=== PATIENT | male | born 1975 | race Caucasian/White ===

== ENCOUNTER 2024-10-24 14:32 | Outpatient (CLI) | payer BC, SELFPAY ==
--- NOTE | ~2024-10-24 | XR_ITS ---
XR cervical spine min 6V Ordering provider: Jose Luis Díaz, [place] History: . R neck pain with radiculopathy . Comparison: None. FINDINGS: VERTEBRAL BODIES: Normal height and alignment. No visible fracture or subluxation. The dens is intact . DISK SPACES: Well maintained. PARASPINOUS SOFT TISSUES: No prevertebral soft tissue swelling. IMPRESSION: No acute osseous abnormality cervical spine. Reviewed, dictated and finalized at location [facility].
== END 2024-10-24 14:33 | disposition home or self-care (01) ==
LOC: MICIMG 14:37
PROVIDERS: PCP Chiropractor; Visit Provider Chiropractor
DX: M54.2 Cervicalgia (principal); M54.12 Radiculopathy, cervical region
CPT/HCPCS: 72052

== ENCOUNTER 2024-10-25 12:46 | Outpatient (CLI) | payer BC, SELFPAY ==
--- NOTE | ~2024-10-25 | MR_ITS ---
MRI of the cervical spine Clinical History: Neck pain Technique: Axial T2-weighted and gradient images, and sagittal T1-weighted, T2-weighted, and STIR alf ges were acquired. Findings: There is straightening of the normal cervical lordosis. No fracture or subluxation seen. No bone marrow signal abnormality seen. At C2-C3, there is no significant disc bulge or herniation. No spinal canal stenosis, cord compressio n, or neural foraminal narrowing evident. C3-C4, there is mild disc osteophyte complex. No spinal canal stenosis or cord compression. Probable minimal bilateral neural foraminal narrowing. At C4-C5, there is disc osteophyte complex and mild facet arthropathy bilaterally. There is left neur al foraminal narrowing. Right neural foramen preserved. No canal stenosis or cord compression. At C5-C6, there is mild disc osteophyte complex and mild facet hypertrophy. There is mild bilateral n eural foraminal narrowing, left worse than right. No canal stenosis or cord compression. At C6-C7, there is disc osteophyte complex with bilateral neural foraminal narrowing. No canal stenos is or cord compression evident. No abnormal signal seen in the spinal cord. Paravertebral soft tissues are unremarkable. Impression: [id number] degenerative spondylosis, with multilevel neural foraminal narrowing, as detailed ab ove. Reviewed, dictated and finalized at [facility]. Impression: [id number] degenerative spondylosis, with multilevel neural foraminal flash rowing, as detailed above.
== END 2024-10-25 12:47 | disposition home or self-care (01) ==
LOC: GOSHIMG 12:47
PROVIDERS: PCP Chiropractor; Visit Provider Chiropractor
DX: M47.892 Other spondylosis, cervical region (principal); M48.02 Spinal stenosis, cervical region
CPT/HCPCS: 72141